=== PATIENT | male | born 1990 | race Caucasian/White ===

== ENCOUNTER 2017-10-04 15:23 | Emergency (ER) | payer SELFPAY ==
[~2017-10-04] VITALS: Ht 180.3 cm; Wt 80.0 kg
[2017-10-04 15:27] VITALS: BP 135/67; PULSE 86; RESP 18; TEMP 98.9; O2SAT 100
--- NOTE | 2017-10-04 15:58 | PD ---
HPI Chief Complaint: Laceration/Skin Injury Time Seen by Provider: 15:57 Travel History International Travel<30 days: No Contact w/Intl Traveler<30days: No Traveled to known affect area: No History of Present Illness HPI 27 YO m ARRIVES WITH FINGER LACERATION AFTER cutting potatoes at home this morning with a kitchen knife. moderate constant stinging pain reported. bleeding stopped with application of pressure. no additional injury to report. onset sudden. last tetanus > 5 years. PFSH Social History Tobacco Use: No Allergies-Medications (Allergen,Severity, Reaction): Coded Allergies: No Known Allergies (Verified Allergy, Unknown, 10/04/17) Reported Meds & Prescriptions Reported Meds & Active Scripts Active No Active Prescriptions or Reported Medications Review of Systems General / Constitutional: No: Fever Cardiovascular: No: Chest Pain or Discomfort, Palpitations Respiratory: No: Shortness of Breath Physical Exam Narrative GENERAL: WNWD, NAD, 27 yo M SKIN: Warm and dry. along distal pad of left ring finger there is a triangle shaped avulsion approx 1.5 cm at the base by 1.5 cm at the longest. HEAD: Normocephalic. EYES: No scleral icterus. No injection or drainage. MUSCULOSKELETAL: No cyanosis, or edema. Normal ROM active/passive L third ring finger. BACK: Nontender without obvious deformity. No CVA tenderness. Data Data Last Documented VS Vital Signs Date Time Temp Pulse Resp B/P (MAP) Pulse Ox O2 Delivery O2 Flow Rate FiO2 10/04/17 15:27 98.9 86 18 135/67 (89) 100 Room Air VS reviewed Orders Orders Tetanus/Diphtheria Tox Adult (Tetanus/Di (10/04/17 16:00) Ed Discharge Order (10/04/17 15:58) MDM Medical Decision Making Medical Screen Exam Complete: Yes Emergency Medical Condition: Yes Differential Diagnosis laceration, avulsion, cellulitis Narrative Course laceration repaired return precautions discussed follow up discussed pt amenable with plan Procedures Procedure Narrative LACERATION LOCATION: L fourth digit, distal volar aspect LENGTH: approx 2 cm total NUMBER OF STITCHES/LORENE: 7 REPAIR: The area of the laceration was prepped with Betadine and sterilely draped. The laceration was infiltrated with lidocaine. The wound was copiously irrigated and explored without evidence of foreign body, tendon injury or neurovascular injury. The wound was closed using 5-0 ethilon. This was a single layer repair. A sterile dressing was applied. The patient was advised to keep the dressing clean and dry. Patient tolerated the procedure well. Diagnosis Primary Impression: Finger laceration Qualified Codes: S61.215A - Laceration without foreign body of left ring finger without damage to nail, initial encounter Additional Instructions: RETURN TO ER IN 9 DAYS FOR SUTURE REMOVAL Med/Other Pt SpecificInfo: No Change to Meds Scripts No Active Prescriptions or Reported Meds Disposition: 01 DISCHARGE HOME Condition: Stable Ankit Schneider MD Oct 04, 2017 15:58
[2017-10-04] MEDS ORDERED: TETANUS/DIPHTHERIA TOXOID ADULT 0.5 ML VIAL IM ONE (16:00)
== END 2017-10-04 16:15 | disposition home or self-care (01) ==
LOC: NEPK 15:23
DX: S61.215A Laceration without foreign body of left ring finger without damage to nail, initial encounter (principal); W26.0XXA Contact with knife, initial encounter; Y93.G3 Activity, cooking and baking; Y92.000 Kitchen of unspecified non-institutional (private) residence as the place of occurrence of the external cause; Z23 Encounter for immunization
CPT/HCPCS: 12001; 90471; 90714